=== PATIENT | male | born 1990 | race Hispanic/Latino ===

== ENCOUNTER 2021-10-02 22:03 | Emergency (ER) | payer BC ==
[~2021-10-02] VITALS: Ht 172.7 cm; Wt 120.2 kg
[2021-10-02] MEDS ORDERED: CYCLOBENZAPRINE10 MG PO (22:26)
== END 2021-10-02 22:36 | disposition home or self-care (01) ==
LOC: ED 22:03
DX: S46.812A Strain of other muscles, fascia and tendons at shoulder and upper arm level, left arm, initial encounter (principal); X50.0XXA Overexertion from strenuous movement or load, initial encounter
CPT/HCPCS: 99283